=== PATIENT | female | born 2000 | race Caucasian/White ===

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

== ENCOUNTER → 2018-05-25 | Outpatient (REF) | payer OTHER, MEDICAID ==
[2018-05-25 13:30] LABS: CONTROL LINE UCG INT CTR LINE PRESENT; URINE PREG TEST NEGATIVE (NEGATIVE)
[2018-05-25 15:06] LABS: CHLAMYDIA DNA AMPLIFICATION NEGATIVE (NEGATIVE); GC DNA AMPLIFICATION NEGATIVE (NEGATIVE)
== END ==
LOC: M LAB REF 12:56
DX: Z11.3 Encounter for screening for infections with a predominantly sexual mode of transmission (principal)

== ENCOUNTER → 2018-11-11 | Outpatient (REF) | payer OTHER, MEDICAID ==
[~2018-11-11] MED LIST changes: +CEFD1CAP8 PO; +MICR1TAB18 PO
== END ==
LOC: M LAB REF 18:26
PROVIDERS: ATTEND Nurse Practitioner Family
DX: R82.5 Elevated urine levels of drugs, medicaments and biological substances (principal)

== ENCOUNTER 2018-11-26 20:25 | Emergency (ER) | payer OTHER, MEDICAID ==
[~2018-11-26 20:25] MED LIST changes: -MICR1TAB18 PO
[2018-11-26] MEDS ORDERED: MICR1TAB18 PO (20:36)
[2018-11-26 22:46] VITALS: BP 147/83
== END 2018-11-26 23:01 | disposition left against medical advice (07) ==
LOC: M ED 20:25 → EDBD 20:25 → M ED 23:01
DX: F41.9 Anxiety disorder, unspecified (principal); J45.909 Unspecified asthma, uncomplicated; Z79.3 Long term (current) use of hormonal contraceptives; Z79.899 Other long term (current) drug therapy; Z53.21 Procedure and treatment not carried out due to patient leaving prior to being seen by health care provider